=== PATIENT | male | born 1970 | race Caucasian/White ===

== ENCOUNTER 2019-10-21 12:15 | Emergency (ER) | payer OTHER ==
[2019-10-21 12:51] VITALS: BP 146/90
--- NOTE | 2019-10-21 12:54 | UC ---
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 He has continued low back pain since then. He denies any difficulty urinating and no difficulty with bowel movements. He denies any numbness or tingling in his extremities and no saddle anesthesia. - History of Current Complaint Chief Complaint: UCBackPain Stated Complaint: LOWER BACK W/C Time Seen by Provider: 10/21/19 12:41 Hx Obtained From: Patient Onset/Duration: Sudden Onset, Other Timing: Intermittent Severity Initially: Moderate Severity Currently: Mild Pain Intensity: 6 Character: Dull, Aching Aggravating Factor(s): Movement, Lifting, Bending Alleviating Factor(s): Rest Associated Signs And Symptoms: Negative: Bruising, Weakness, Numbness, Tingling , Abdominal Pain, Flank Pain, Bladder Incontinence, Bowel Incontinence, Pain with Weight Bearing - Allergies/Home Medications Allergies/Adverse Reactions: Allergies Allergy/AdvReac Type Severity Reaction Status Date / Time Penicillins Allergy Hives Verified 10/21/19 12:45 Home Medications: Home Medications Cyclobenzaprine TAB* [Flexeril 10 MG TAB*] 10 mg PO TID PRN #21 tab 10/21/19 [Rx ] Ibuprofen TAB* [Advil TAB*] 800 mg PO ONCE 10/21/19 [History Confirmed 10/21/19] PMH/Surg Hx/FS Hx/Imm Hx Previously Healthy: Yes - Surgical History Surgical History: None - Family History Known Family History: Positive: Unknown - Social History Occupation: Employed Full-time Lives: With Family Alcohol Use: Weekly Substance Use Type: None Smoking Status (MU): Former Smoker Type: Cigarettes Amount Used/How Often: 1 ppd Review of Systems All Other Systems Reviewed And Are Negative: Yes Motor: Positive: Negative Neurovascular: Positive: Negative Musculoskeletal: Positive: Other: - Mostly pain left lower back with movement. Patient is able to replicate the pain. Neurological/Mental Status: Negative: Weakness, Paresthesia, Numbness Psychological: Positive: Negative Is Patient Immunocompromised?: No Physical Exam Triage Information Reviewed: Yes Appearance: Well-Appearing, No Pain Distress, Well-Nourished Vital Signs: Initial Vital Signs Temp 98.6 F 10/21/19 12:45 Pulse 91 10/21/19 12:45 Resp 16 03/27/20 12:45 BP 146/90 10/21/19 12:45 Pulse Ox 99 10/21/19 12:45 Vital Signs Reviewed: Yes Respiratory: Positive: No respiratory distress, No accessory muscle use, Rhonchi - Mild scattered rhonchi (Pt is a smoker) Cardiovascular: Positive: RRR, No Murmur, Pulses Normal, Brisk Capillary Refill Abdomen Description: Positive: Nontender, No Organomegaly, Soft. Negative: CVA Tenderness (R), CVA Tenderness (L), Distended, Guarding, Hepatomegaly, Splenomegaly Bowel Sounds: Positive: Present Musculoskeletal Exam: Normal Musculoskeletal: Positive: Other: - Mild pain on palpation left paraspinal muscle area. No erythema, deformity, bruising or swelling. Negative straight leg raise. Good peripheral pulses, neuro sensation and capillary refill. Neurological Exam: Normal Psychological Exam: Normal Skin Exam: Normal Back Pain Course/Dx - Course Course Of Treatment: The patient does not work the weekend therefore I gave him a work note for today. He can apply heat to the sore area, take ibuprofen as directed and take Flexeril as directed. He is to follow up at [facility] if no improvement by Thursday. - Differential Dx/Diagnosis Provider Diagnosis: Low back strain Discharge ED - Sign-Out/Discharge Documenting (check all that apply): Patient Departure All imaging exams completed and their final reports reviewed: No Studies - Discharge Plan Condition: Good Disposition: HOME Prescriptions: Cyclobenzaprine TAB* [Flexeril 10 MG TAB*] 10 mg PO TID PRN #21 tab PRN Reason: Spasms Patient Education Materials: Low Back Strain (ED) Forms: *Work Release Referrals: [facility] [facility] [Outside] [facility] [Outside] No Primary Care Phys,NOPCP [Primary Care Provider] - Additional Instructions: Apply heat or ice to the sore area. Avoid movements that cause pain. Take ibuprofen 600 mg every 8 hours with food. No drinking alcohol, driving or operating machinery while you're taking the muscle relaxant. Definite follow up at [facility] for further care if no improvement by Thursday. - Billing Disposition and Condition Condition: GOOD Disposition: Home
== END 2019-10-21 13:19 | disposition home or self-care (01) ==
LOC: UCCORT 12:15
DX: S39.012A Strain of muscle, fascia and tendon of lower back, initial encounter (principal); X50.0XXA Overexertion from strenuous movement or load, initial encounter; Y93.H3 Activity, building and construction; Y92.9 Unspecified place or not applicable; Y99.0 Civilian activity done for income or pay; Z88.0 Allergy status to penicillin; Z87.891 Personal history of nicotine dependence
CPT/HCPCS: 99202; G0463